=== PATIENT | female | born 2000 | race Caucasian/White ===

== ENCOUNTER 2019-04-11 15:25 | Outpatient (CLI) | payer OTHER, BC ==
[2019-04-11 16:20] LABS: APPEARANCE,URINE CLOUDY; BILIRUBIN,URINE NEGATIVE (NEGATIVE); COLOR,URINE YELLOW; GLUCOSE, URINE 50 mg/dL (NEGATIVE); KETONES,URINE NEGATIVE (NEGATIVE); LEUKOCYTE ESTERASE,URINE SMALL (NEGATIVE); NITRITE,URINE NEGATIVE (NEGATIVE); PROTEIN,URINE NEGATIVE (NEGATIVE); URINE SPECIFIC GRAVITY 1.008; UROBILINOGEN,URINE NEGATIVE mg/dL (<2.0)
[2019-04-11 16:34] LABS: URINE BARBITURATES SCREEN NEGATIVE; URINE BENZODIAZEPINES SCREEN NEGATIVE; URINE COCAINE SCREEN NEGATIVE; URINE MARIJUANA (THC) SCREEN NEGATIVE; URINE PHENCYCLIDINE SCREEN NEGATIVE
[2019-04-11 16:35] LABS: URINE AMPHETAMINES SCREEN NEGATIVE; URINE METHADONE SCREEN NEGATIVE
--- NOTE | 2019-04-11 16:44 | Non Stress Test Report ---
Non Stress Test Datetime Report Generated by CPN: 04/11/2019 16:44 DEMOGRAPHIC EGA NST: 38.2 INDICATION Indication for Study: Ordered by Provider VITAL SIGNS Temperature - NST: 98.0 RESP - NST: 16 MONITORING Monitor Explained: Monitor Explained; Test Explained; Patient Verbalized Understanding Time on Monitor: 04/11/2019 15:45 Time off Monitor: 04/11/2019 16:27 NST Duration: 42 NST INTERVENTIONS NST Interventions: PO Hydration; Reposition Patient Physician Notified NST: Dr. Sriram BABY A: [id number] BABY A Movement : Present Contraction Frequency : x2 FHR Baseline : 135 Accelerations : 15X15 Decelerations : None Variability : Moderate 6-25bpm NST Review: Meets Criteria for Reactive NST NST Review and Verified By : Dawson Martel RN NST Results: Reactive NST REPORT Report Trigger: Send Report (Annotations: Data stored by N on behalf of user)
== END 2019-04-11 16:55 | disposition home or self-care (01) ==
LOC: LC 15:25
PROVIDERS: ATTEND Obstetrics & Gynecology
PROC: 4A1HXCZ Monitoring of Products of Conception, Cardiac Rate, External Approach (ICD-10-PCS; principal; 2019-04-11)
DX: O26.893 Other specified pregnancy related conditions, third trimester (principal); Z3A.38 38 weeks gestation of pregnancy
CPT/HCPCS: 59025; 80307; 81005

== ENCOUNTER 2019-04-24 18:51 | Outpatient (CLI) | payer OTHER, BC ==
[2019-04-24 19:50] LABS: APPEARANCE,URINE SLIGHTLY-CLOUDY; BILIRUBIN,URINE NEGATIVE (NEGATIVE); COLOR,URINE YELLOW; GLUCOSE, URINE NEGATIVE (NEGATIVE); KETONES,URINE NEGATIVE (NEGATIVE); LEUKOCYTE ESTERASE,URINE SMALL (NEGATIVE); NITRITE,URINE NEGATIVE (NEGATIVE); PROTEIN,URINE NEGATIVE (NEGATIVE); UROBILINOGEN,URINE NEGATIVE mg/dL (<2.0)
[2019-04-24 20:17] LABS: URINE AMPHETAMINES SCREEN NEGATIVE; URINE BARBITURATES SCREEN NEGATIVE; URINE BENZODIAZEPINES SCREEN NEGATIVE; URINE COCAINE SCREEN NEGATIVE; URINE MARIJUANA (THC) SCREEN NEGATIVE; URINE METHADONE SCREEN NEGATIVE; URINE PHENCYCLIDINE SCREEN NEGATIVE
[2019-04-24] MEDS ORDERED: HYDROXYZINE PAMOATE 50 MG CAPSULE ONE (20:19)
--- NOTE | 2019-04-24 20:34 | Non Stress Test Report ---
Non Stress Test Datetime Report Generated by CPN: 04/24/2019 20:33 DEMOGRAPHIC EGA NST: 40.1 INDICATION Indication for Study: Other Indication for Study (NST) Other: Labor check MONITORING Monitor Explained: Monitor Explained; Test Explained; Patient Verbalized Understanding Time on Monitor: 04/24/2019 19:15 Time off Monitor: 04/24/2019 20:15 NST Duration: 60 NST INTERVENTIONS NST Interventions: PO Hydration Physician Notified NST: Dr. Torres BABY A: [id number] BABY A Movement : Present Contraction Frequency : Irreg FHR Baseline : 145 Accelerations : 15X15 Decelerations : None Variability : Moderate 6-25bpm NST Review: Meets Criteria for Reactive NST NST Review and Verified By : Effie Reyna RN NST Results: Reactive NST REPORT Report Trigger: Send Report
== END 2019-04-24 20:28 | disposition home or self-care (01) ==
LOC: LC 18:51
PROVIDERS: ATTEND Obstetrics & Gynecology
PROC: 4A1HXCZ Monitoring of Products of Conception, Cardiac Rate, External Approach (ICD-10-PCS; principal; 2019-04-24)
DX: O47.1 False labor at or after 37 completed weeks of gestation (principal); O48.0 Post-term pregnancy; Z3A.40 40 weeks gestation of pregnancy
CPT/HCPCS: 59025; 80307; 81005

== ENCOUNTER 2019-04-26 20:25 | Outpatient (CLI) | payer OTHER, BC ==
[2019-04-26 21:07] LABS: APPEARANCE,URINE CLEAR; BILIRUBIN,URINE NEGATIVE (NEGATIVE); COLOR,URINE YELLOW; GLUCOSE, URINE 50 mg/dL (NEGATIVE); KETONES,URINE TRACE mg/dL (NEGATIVE); LEUKOCYTE ESTERASE,URINE NEGATIVE (NEGATIVE); NITRITE,URINE NEGATIVE (NEGATIVE); PROTEIN,URINE NEGATIVE (NEGATIVE); URINE SPECIFIC GRAVITY 1.014; UROBILINOGEN,URINE NEGATIVE mg/dL (<2.0)
[2019-04-26 21:24] LABS: URINE AMPHETAMINES SCREEN NEGATIVE; URINE BARBITURATES SCREEN NEGATIVE; URINE BENZODIAZEPINES SCREEN NEGATIVE; URINE COCAINE SCREEN NEGATIVE; URINE MARIJUANA (THC) SCREEN NEGATIVE; URINE METHADONE SCREEN NEGATIVE; URINE PHENCYCLIDINE SCREEN NEGATIVE
== END 2019-04-26 21:28 | disposition home or self-care (01) ==
LOC: LC 20:25
PROVIDERS: ATTEND Obstetrics & Gynecology
PROC: 4A1HXCZ Monitoring of Products of Conception, Cardiac Rate, External Approach (ICD-10-PCS; principal; 2019-04-26)
DX: Z34.93 Encounter for supervision of normal pregnancy, unspecified, third trimester (principal)
CPT/HCPCS: 59025; 80307; 81005

== ENCOUNTER 2019-04-29 19:13 | Inpatient (IN) | payer BC, OTHER ==
[2019-04-29] MEDS ORDERED: RINGERS SOLUTION,LACTATED 1,000 ML IV PRN ×2 (19:19)
[2019-04-29] MEDS ORDERED: RINGERS SOLUTION,LACTATED 300 ML IV ONE (19:19)
[2019-04-29] MEDS ORDERED: OXYTOCIN/NORMAL SALINE 20 UNIT/1,000 ML RTUINJ IV PRN (19:19)
[2019-04-29] MEDS ORDERED: RINGERS SOLUTION,LACTATED 1,000 ML IV ONE (19:19)
--- NOTE | 2019-04-29 19:53 | Admission Physical ---
Datetime Report Generated by CPN: 04/29/2019 19:52 CURRENT ADMISSION Chief Complaint: Scheduled Induction of Labor Indication for Induction: Post Dates Admit Impression : Term, Intrauterine ; No Active Labor; Intact Membranes Admit Plan: Admit to Unit; Initiate Labor Induction Protocol ALLERGIES Medication Allergies: No Medication Allergies: No Known Allergies (04/29/2019) Latex: No Latex Allergies Food Allergies: None Environmental Allergies: None OBSTETRICAL HISTORY EDC: 04/23/2019 00:00 : 1 Para: 0 Term: 0 : 0 SAB: 0 IAB: 0 Ectopic: 0 Livin Cesareans: 0 VBACs: 0 Multiple Births: 0 Gestational Diabetes: No Rh Sensitization: No Incompetent Cervix: No CLIF: No Infertility: No ART Treatment: No Uterine Anomaly: No IUGR: No Hx Previous C/S: No Macrosomia: No Hx Loss/Stillborn: No PIH: No Hx : No Placenta Previa/Abruption: No Depression/PP Depression: No PTL/PROM: No Post Hemorrhage: No Obstetrical History Comments: G1: current SEE RECORDS Alcohol: No Marijuana : No Cocaine: No Other Illicit Drugs: No Cigarettes: Never Smoker. [id number] MEDICAL HISTORY Diabetes: No Blood Transfusion: No Pulmonary Disease (Asthma, TB): No Breast Disease: No Hypertension: No Poker Dealer Surgery: No Heart Disease: No Hosp/Surgery: No Autoimmune Disorder: No Anesthetic Complications: No Kidney Disease: No Abnormal Pap Smear: No Neuro/Epilepsy: No Psychiatric Disorders: No Other Medical Diseases: No Hepatitis/Liver Disease: No Significant Family History: No Varicosities/Phlebitis: No Trauma/Violence : No Thyroid Dysfunction: No Medical History Comments: epilepsy- last seizure in July INFECTIOUS HISTORY Gonorrhea: No Genital Herpes: No Chlamydia: No Tuberculosis: No Syphilis: No Hepatitis: No HIV/AIDS Exposure: No Rash or Viral Illness: No HPV: No PHYSICAL EXAM General: Normal HEENT: Normal Neurologic: Normal Thyroid: Deferred Heart: Normal Lungs: Normal Breast: Deferred Back: Normal Abdomen: Normal Genitourinary Exam: Normal Extremities: Normal DTRs: Normal Pelvic Type: Adequate Vital Signs: Reviewed VAGINAL EXAM Dilatation: 2 Effacement: 50 Station: -2 Contraction Comments: rare MEMBRANES Membranes: Intact FETUS A EGA: 40.6 Monitoring: External US FHR- Baseline: 130 Variability: Moderate 6-25bpm Accelerations: 15X15 Decelerations: None FHR Category: Category I Presentation: Vertex Admit Comment: 18yo at 40+6ega presents for scheduled IOL. Rh negative. History of seizure disorder - last seizure in July - seeing Neuro, on Keppra. Patient was in [place] from 16+4ega to 29+0ega. WIll try to get anatomy US and records from [place]. o/w uncomplcated. Rubella NI. Admit and anticipate . Cooks catheter and pitocin for IOL. PLANS FOR LABOR AND DELIVERY Labor and Delivery: None Pain Management: Medications; Epidural Feeding Preference: Breast Benefit of Breast Feed Discussed: Yes Circumcision: Yes INFORMED CONSENT Informed Consent Obtained: Vaginal Delivery; Induction of Labor; Risks, Benefits and Alternatives Discussed Signature: with User ID: [email or web address]
[2019-04-29 20:10] LABS: ABSOLUTE EOSINOPHILS # (AUTO) 0.1 10^3/uL (0.0-0.6); ABSOLUTE LYMPHOCYTES (AUTO) 1.8 10^3/uL (0.5-4.7); ABSOLUTE MONOCYTES (AUTO) 0.6 10^3/uL (0.1-1.4); ABSOLUTE NEUT (AUTO) 5.5 10^3/uL (1.7-8.2); BASOPHILS % (AUTO) 0.5 % (0-2); EOSINOPHILS % (AUTO) 0.7 % (0-6); HEMATOCRIT 33.5 % (36.0-47.0); HEMOGLOBIN 11.4 g/dL (12.0-15.5); LYMPHOCYTES % (AUTO) 22.6 % (13-45); MEAN CORPUSCULAR HEMOGLOBIN 28.2 pg (27.0-33.4); MEAN CORPUSCULAR VOLUME 83 fl (80-97); PLATELET COUNT 235 10^3/uL (150-450); RED BLOOD COUNT 4.04 10^6/uL (3.72-5.28); RED CELL DISTRIBUTION WIDTH 15.2 % (11.5-14.0); SEGMENTED NEUTROPHILS % (AUTO) 68.2 % (42-78); TOTAL CELLS COUNTED % (AUTO) 100 %
[2019-04-29 20:44] LABS: APPEARANCE,URINE SLIGHTLY-CLOUDY; BILIRUBIN,URINE NEGATIVE (NEGATIVE); COLOR,URINE YELLOW; GLUCOSE, URINE 150 mg/dL (NEGATIVE); KETONES,URINE TRACE mg/dL (NEGATIVE); LEUKOCYTE ESTERASE,URINE NEGATIVE (NEGATIVE); NITRITE,URINE NEGATIVE (NEGATIVE); PROTEIN,URINE NEGATIVE (NEGATIVE); URINE SPECIFIC GRAVITY 1.021; UROBILINOGEN,URINE NEGATIVE mg/dL (<2.0)
[2019-04-29 20:55] LABS: URINE AMPHETAMINES SCREEN NEGATIVE; URINE BARBITURATES SCREEN NEGATIVE; URINE BENZODIAZEPINES SCREEN NEGATIVE; URINE COCAINE SCREEN NEGATIVE; URINE MARIJUANA (THC) SCREEN NEGATIVE; URINE METHADONE SCREEN NEGATIVE; URINE PHENCYCLIDINE SCREEN NEGATIVE
[2019-04-29] MEDS ORDERED: OXYTOCIN/NORMAL SALINE 20 UNIT/1,000 ML RTUINJ ONE (21:20)
[2019-04-29] MEDS ORDERED: OXYTOCIN 10 UNIT/ML VIAL ONE (21:20)
[2019-04-29] MEDS ORDERED: MISOPROSTOL 0.2 MG TABLET ONE (21:20)
[2019-04-29] MEDS ORDERED: LIDOCAINE 1% INJ-PF (10 MG/ML) 30 ML SDV ONE (21:20)
[2019-04-29] MEDS: LEVETIRACETAM 500 MG TABLET PO SCH (21:53)
[2019-04-30] MEDS ORDERED: EPHEDRINE SULFATE INJ 50 MG/1 ML AMPULE ONE (00:23)
[2019-04-30] MEDS ORDERED: FENTANYL/BUPIVACAINE/NS/PF 300 MCG/150 ML RTUINJ EPI ONE ×2 (00:23→13:01)
[2019-04-30] MEDS ORDERED: BUPIVACAINE HCL 0.25 % INJ/PF (2.5 MG/1 ML) 30 ML VIAL ONE (00:24)
[2019-04-30] MEDS: LEVETIRACETAM 500 MG TABLET PO SCH (10:04)
[2019-04-30] MEDS ORDERED: DIPHENHYDRAMINE HCL 50 MG/ML VIAL IV ONE (13:45)
[2019-04-30] MEDS ORDERED: DIPHENHYDRAMINE HCL 50 MG/ML VIAL ONE (13:49)
[2019-04-30] MEDS ORDERED: LIDOCAINE 2% INJ-PF (20 MG/ML) 10 ML AMPUL ONE (15:45)
[2019-04-30] MEDS ORDERED: OXYTOCIN/NORMAL SALINE 20 UNIT/1,000 ML RTUINJ ONE (17:36)
[2019-04-30] MEDS ORDERED: BENZOCAINE/MENTHOL AEROSOL SPRAY 56 ML TOP PRN (19:47)
[2019-04-30] MEDS ORDERED: OXYTOCIN/NORMAL SALINE 20 UNIT/1,000 ML RTUINJ IV PRN (19:47)
[2019-04-30] MEDS ORDERED: MEASLES,MUMPS&RUBELLA VACC/PF 0.5 ML VIAL SUBCUT PRN (19:47)
[2019-04-30] MEDS ORDERED: PROMETHAZINE HCL 25 MG TABLET PO PRN (19:47)
[2019-04-30] MEDS ORDERED: PROMETHAZINE HCL INJ 25 MG/1 ML VIAL IV PRN (19:47)
[2019-04-30] MEDS ORDERED: DIBUCAINE 1% OINTMENT 56 GM TP PRN (19:47)
[2019-04-30] MEDS ORDERED: ACETAMINOPHEN 650 MG SUPP.RECT PR PRN (19:47)
[2019-04-30] MEDS ORDERED: ZOLPIDEM TARTRATE 5 MG TABLET PO PRN (19:47)
[2019-04-30] MEDS ORDERED: DIPHENHYDRAMINE HCL 25 MG CAPSULE PO PRN (19:47)
[2019-04-30] MEDS ORDERED: PSEUDOEPHEDRINE HCL 30 MG TABLET PO PRN (19:47)
[2019-04-30] MEDS ORDERED: GLYCERIN/WITCH HAZEL LEAF 1 EACH MED..WIPE TP PRN (19:47)
[2019-04-30] MEDS ORDERED: NA PHOS,M-B/NA PHOS,DI-BA (ADULT) 133 ML ENEMA PR PRN (19:47)
[2019-04-30] MEDS ORDERED: PROMETHAZINE HCL 25 MG SUPP.RECT PR PRN (19:47)
[2019-04-30] MEDS ORDERED: DIPH/PERTUSS(ACELL)/TETANUS VAC/PF 0.5 ML SYR (>=10YO) IM PRN (19:47)
[2019-04-30] MEDS ORDERED: MAGNESIUM HYDROXIDE SUSP 30 ML UDCUP PO PRN (19:47)
[2019-04-30] MEDS ORDERED: ACETAMINOPHEN WITH CODEINE #3 TABLET ONE (20:18)
[2019-04-30] MEDS: ACETAMINOPHEN WITH CODEINE #3 TABLET PO PRN (20:19)
[2019-04-30] MEDS ORDERED: IBUPROFEN 800 MG TABLET ONE (21:05)
[2019-04-30] MEDS: IBUPROFEN 800 MG TABLET PO SCH (21:10)
[2019-04-30] MEDS: LEVETIRACETAM ORAL SOLN 500 MG/5 ML UDCUP PO SCH (21:49)
[2019-04-30] MEDS ORDERED: FAMOTIDINE 20 MG TABLET ONE (21:50)
[2019-04-30] MEDS: FAMOTIDINE 20 MG TABLET PO SCH (21:53)
--- NOTE | 2019-05-01 00:07 | Warning Signs in Babies ---
VOD Warning Signs Datetime Report Generated by N: 05/01/2019 00:07 VOD#608 -Warning Signs in Babies: Viewed with Parent(s)/Family (05/01/2019 00:07:Jim Luque RN)
--- NOTE | 2019-05-01 00:29 | Delivery Summary ---
Del Sum A-C Datetime Report Generated by CPN: 05/01/2019 00:28 DELIVERY PERSONNEL DELIVERY PERSONNEL: [id number] Delivery Doctor:: Jordan Norwood MD Labor and Delivery Nurse:: Jim Luque RNculinary chef Nurse:: Ashley Jenkins RN Neck Band Maker/FIRE WARDEN: Aggie Ray ST Additional Personnel: : JUANY Dale and JUANY Maraivlla MATERNAL INFORMATION Delivery Anesthesia: Epidural Medications After Delivery: Pitocin Bolus-Please Comment Meds After Delivery Comment: Pitocin 20 units in 1 L NS bolusing per order Delivery QBL: 300 Maternal Complications: None LABOR SUMMARY EDC: 04/23/2019 00:00 No. Babies in Womb: 1 Attempted: No Labor Anesthesia: Epidural LABOR INFORMATION Reason for Induction: Post Dates Onset of Labor: 04/30/2019 11:09 Complete Dilatation: 04/30/2019 17:23 Cervical Ripening Agents: Amaral Balloon Oxytocin: Induction Group B Beta Strep: negative Antibiotics # of Doses: 0 Antibiotics Time of Last Dose: n/a Name of Antibiotic Given: n/a Steroids Given: None Reason Steroids Not Administered: Not Applicable MEMBRANES Membranes Rupture Method: Artificial Rupture of Membranes: 04/30/2019 02:57 Length of Rupture (hr): 16.70 Amniotic Fluid Color: Clear Amniotic Fluid Amount: Moderate Amniotic Fluid Odor: Normal STAGES OF LABOR Stage 1 hr: 6 Stage 1 min: 14 Stage 2 hr: 2 Stage 2 min: 16 Stage 3 hr: 0 Stage 3 min: 3 Total Time in Labor hr: 8 Total Time in Labor min: 33 VAGINAL DELIVERY Episiotomy: None Laceration #1: Periurethral Laceration Extension #1: N/A Sponge Count Correct: Yes Sharps Count Correct: Yes CSECTION DELIVERY Primary Indication: N/A Secondary Indication: N/A (Annotations: Data stored by CPN on behalf of user) CSection Incidence: N/A (Annotations: Data stored by CPN on behalf of user) Labor: N/A (Annotations: Data stored by CPN on behalf of user) Elective: N/A (Annotations: Data stored by CPN on behalf of user) CSection Incision: N/A BABY A INFORMATION Delivery Date/Time: 04/30/2019 19:39 Method of Delivery: Vaginal Born in Route : No : N/A Forceps: N/A Vacuum Extraction: N/A Shoulder Dystocia : No PRESENTATION/POSITION BABY A Presentation: Cephalic Cephalic Presentation: Vertex Breech Presentation: N/A PLACENTA INFORMATION BABY A Placenta Delivery Time : 04/30/2019 19:42 Placenta Method of Delivery: Spontaneous Placenta Status: Delivered SCORES BABY A Heart Rate 1 min: >100 bpm Resp Effort 1 min: Good Cry Reflex Irritability 1 min: Cough or Sneeze or Pulls Away Muscle Tone 1 min: Active Motion Color 1 min: Blue/Pale SCORE 1 MIN: 8 Heart Rate 5 min: >100 bpm Resp Effort 5 min: Good Cry Reflex Irritability 5 min: Cough or Sneeze or Pulls Away Muscle Tone 5 min: Active Motion Color 5 min: Body Dames Quarter, Extremities Blue SCORE 5 MIN: 9 INFORMATION BABY A Gestational Age at Delivery: 41.0 Gestational Status: Late Term- 41- 41.6 Weeks Infant Outcome : Liveborn Condition : Stable Sex: Male IDENTIFICATION BABY A Infant Verification Date/Time: 04/30/2019 20:08 ID Band Number: [id number] Mother's Name Verified: Yes Infant RN Verifying : Simin William RN Additional Verifying Personnel: E In[employer] RN WEIGHT/LENGTH BABY A Infant Birthweight (gm): 3453 Weight (lb): 7 Infant Weight (oz): 10 Infant Length (in): 20.00 Infant Length (cm): 50.80 CORD INFORMATION BABY A No. Cord Vessels: 3 Nuchal Cord : Around Neck x1, Loose Cord Blood Taken: Yes-For Eval (Mom's Blood Type - or O+) Suction: Mouth ASSESSMENT BABY A Complications: None Physical Findings at Delivery: Within Normal Limits Infant Respirations: Appears Normal Skin to Skin: Yes Skin to Skin Time (min): 20 Transferred To: Remains with Mother BABY B INFORMATION : N/A SIGNATURES Signature: with User ID: [email or web address]
[2019-05-01] MEDS: IBUPROFEN 800 MG TABLET PO SCH ×3 (06:36→22:22)
[2019-05-01 06:48] LABS: HEMATOCRIT 26.1 % (36.0-47.0); MEAN CORPUSCULAR VOLUME 82 fl (80-97); PLATELET COUNT 197 10^3/uL (150-450); RED BLOOD COUNT 3.17 10^6/uL (3.72-5.28); RED CELL DISTRIBUTION WIDTH 15.2 % (11.5-14.0)
[2019-05-01 06:56] LABS: HEMOGLOBIN 8.9 g/dL (12.0-15.5); WHITE BLOOD COUNT 16.1 10^3/uL (4.0-10.5)
[2019-05-01] MEDS: PRENATAL VITAMIN W DHA CAPSULE PO SCH (09:52)
[2019-05-01] MEDS: SENNOSIDES/DOCUSATE 8.6-50 MG 1 EACH TABLET PO SCH (09:53)
[2019-05-01] MEDS: DOCUSATE SODIUM 100 MG CAPSULE PO SCH ×2 (09:53→17:59)
[2019-05-01] MEDS: FAMOTIDINE 20 MG TABLET PO SCH ×2 (09:53→22:22)
[2019-05-01] MEDS: LEVETIRACETAM ORAL SOLN 500 MG/5 ML UDCUP PO SCH ×2 (09:53→22:23)
[2019-05-01] MEDS: FERROUS SULFATE 325 MG TABLET PO SCH ×2 (09:53→17:59)
[2019-05-01] MEDS: ACETAMINOPHEN WITH CODEINE #3 TABLET PO PRN (11:50)
--- NOTE | 2019-05-01 12:43 | PDOC PROGRESS REPORT ---
Subjective-OB Progress Note for:: 05/01/19 Subjective: Pt resting quietly, at bedside. She reports light bleeding, reg diet and voiding without difficulty. No concerns. Physical Exam (OB) Vital Signs: Temp Pulse Resp BP Pulse Ox 98 F 82 17 128/73 H 99 05/01/19 08:30 05/01/19 00:40 05/01/19 08:30 05/01/19 08:30 05/01/19 08:30 Intake & Output 04/30/19 05/01/19 05/02/19 06:59 06:59 06:59 Weight 71.6 kg - Lochia Lochia Amount: Scant < 10 ml Lochia Color: Rubra/Red - Abdomen Description: Soft Fundal Description: Firm Fundal Height: u/u - u/2 Objective-Diagnostic Laboratory: 05/01/19 06:17 05/01/19 05/01/19 06:17 06:17 WBC 16.1 H D RBC 3.17 L Hgb 8.9 L D Hct 26.1 L MCV 82 MCH 28.0 MCHC 34.0 RDW 15.2 H Plt Count 197 Blood Type O NEGATIVE Assessment and Plan(PN) - Assessment and Plan (1) (spontaneous vaginal delivery) Is this a current diagnosis for this admission?: Yes (2) Encounter for induction of labor Is this a current diagnosis for this admission?: Yes (3) Post-term , 40-42 weeks of gestation Is this a current diagnosis for this admission?: Yes (4) Seizure disorder during Qualifiers: Trimester: unspecified trimester Qualified Code(s): O99.350 - Diseases of the nervous system complicating , unspecified trimester; G40.909 - Epilepsy, unspecified, not intractable, without status epilepticus Is this a current diagnosis for this admission?: Yes - Time Spent with Patient Time with patient: Less than 15 minutes Medications reviewed and adjusted accordingly: Yes - Disposition Anticipated Discharge: Home Within: within 24 hours
[2019-05-02] MEDS: IBUPROFEN 800 MG TABLET PO SCH ×2 (05:12→13:57)
[2019-05-02 08:15] VITALS: BP 97/53
[2019-05-02] MEDS: LEVETIRACETAM ORAL SOLN 500 MG/5 ML UDCUP PO SCH (11:16)
[2019-05-02] MEDS: FAMOTIDINE 20 MG TABLET PO SCH (11:17)
[2019-05-02] MEDS: FERROUS SULFATE 325 MG TABLET PO SCH (11:17)
[2019-05-02] MEDS: DOCUSATE SODIUM 100 MG CAPSULE PO SCH (11:17)
[2019-05-02] MEDS: SENNOSIDES/DOCUSATE 8.6-50 MG 1 EACH TABLET PO SCH (11:17)
[2019-05-02] MEDS: PRENATAL VITAMIN W DHA CAPSULE PO SCH (11:18)
--- NOTE | 2019-05-02 11:36 | PDOC DISCHARGE SUMMARY ---
Final Diagnosis Discharge Date: 05/02/19 - Final Diagnosis (1) (spontaneous vaginal delivery) Is this a current diagnosis for this admission?: Yes (2) Encounter for induction of labor Is this a current diagnosis for this admission?: Yes (3) Post-term , 40-42 weeks of gestation Is this a current diagnosis for this admission?: Yes (4) Seizure disorder during Is this a current diagnosis for this admission?: Yes Discharge Data - Discharge Medication Home Medications: Folic Acid [Folvite 1 mg Tablet] 1 mg PO DAILY 04/11/19 Levetiracetam [Keppra] 750 mg PO BID 04/11/19 No122/Iron/Folic Acid [ Multi Tablet] 1 each PO DAILY 04/11/19 Reason(s) for Admission: Induction of Labor Procedures: NST Intrapartum Procedure(s): Spontaneous Vaginal Delivery Complication(s): Laceration-Periurethral Laceration-Degree: 1st - Diagnosis Test Laboratory: Temp Pulse Resp BP Pulse Ox 98 F 82 17 128/73 H 99 05/01/19 08:30 05/01/19 00:40 05/01/19 08:30 05/01/19 08:30 05/01/19 08:30 04/29/19 04/29/19 05/01/19 19:59 20:00 06:17 RBC 4.04 3.17 L Hgb 11.4 L 8.9 L D Hct 33.5 L 26.1 L Urine Opiates Screen NEGATIVE - Discharge information/Instructions Discharge Activity: Balance Activity w/Rest, Pelvic Rest Discharge Diet: Regular Disposition: HOME, SELF-CARE Follow up with: [facility] in: 4, Weeks
== END 2019-05-02 18:53 | disposition home or self-care (01) | DRG 807 ==
LOC: LR 19:13 → 2S 05-01 01:00
PROVIDERS: ADMIT Student in an Organized Health Care Education/Training Program; ATTEND Student in an Organized Health Care Education/Training Program
PROC: 10E0XZZ Delivery of Products of Conception, External Approach (ICD-10-PCS; principal; 2019-04-30)
PROC: 3E033VJ Introduction of Other Hormone into Peripheral Vein, Percutaneous Approach (ICD-10-PCS; 2019-04-30)
PROC: 0UQMXZZ Repair Vulva, External Approach (ICD-10-PCS; 2019-04-30)
PROC: 10907ZC Drainage of Amniotic Fluid, Therapeutic from Products of Conception, Via Natural or Artificial Opening (ICD-10-PCS; 2019-04-30)
PROC: 4A1HX4Z Monitoring of Products of Conception, Cardiac Electrical Activity, External Approach (ICD-10-PCS; 2019-04-30)
PROC: 3E0334Z Introduction of Serum, Toxoid and Vaccine into Peripheral Vein, Percutaneous Approach (ICD-10-PCS; 2019-05-01)
DX: O48.0 Post-term pregnancy (principal); Z37.0 Single live birth; G40.909 Epilepsy, unspecified, not intractable, without status epilepticus; Z3A.41 41 weeks gestation of pregnancy; O69.81X0 Labor and delivery complicated by cord around neck, without compression, not applicable or unspecified; O71.82 Other specified trauma to perineum and vulva; O99.350 Diseases of the nervous system complicating pregnancy, unspecified trimester
CPT/HCPCS: 36415; 80307; 81001; 85025; 85027; 85461; 86592; 86850; 86870; 86900; 86901; 94760; J1200; J2590; J2790; J3010; J3490